=== PATIENT | female | born 1980 | race Caucasian/White ===

== ENCOUNTER 2018-03-12 12:14 | Emergency (ER) | payer SELFPAY ==
[~2018-03-12] VITALS: Ht 172.7 cm; Wt 88.5 kg
[~2018-03-12 12:14] MED LIST: EXENATIDE; METFORMIN HCL500 MG PO; NOVOLIN N100 UNIT/1 SQ; NOVOLIN R100 UNIT/1 SQ; Z.0.ATIVAN2 MG; Z.0.LEXAPRO10 MG
[2018-03-12] MEDS ORDERED: KETOROLAC TROMETHAMINE 30 MG/ML VIAL IV STA (12:18)
[2018-03-12 12:30] LABS: BASOPHILS # (AUTO) 0.1 (0.0-0.1); BASOPHILS % 0.4 % (0.0-1.0); EOSINOPHILS # (AUTO) 0.3 (0.0-0.4); EOSINOPHILS % 2.4 % (0.0-6.0); HEMATOCRIT 46.1 % (34.2-44.1); HEMOGLOBIN 15.4 g/dL (12.0-16.0); LYMPHOCYTES # (AUTO) 3.5 (1.0-3.2); MEAN CORPUSCULAR HEMOGLOBIN 27.5 pg (28-32); MEAN CORPUSCULAR HGB CONC 33.4 g/dL (31-35); MEAN CORPUSCULAR VOLUME 82.3 fL (81-99); MONOCYTES # (AUTO) 0.8 (0.2-0.8); MONOCYTES % 6.3 % (4.4-11.3); NEUTROPHILS # (AUTO) 7.5 (2.1-6.9); NEUTROPHILS % 61.4 % (38.7-80.0); PLATELET COUNT 221 x10e3/uL (140-360); RED CELL DISTRIBUTION WIDTH 13.9 % (11.7-14.4)
[2018-03-12 12:36] LABS: PROTHROMBIN TIME 12.4 seconds (11.9-14.5)
[2018-03-12 12:44] LABS: ALANINE AMINOTRANSFERASE 24 IU/L (0-55); ALBUMIN/GLOBULIN RATIO 1.1 (0.8-2.0); ALKALINE PHOSPHATASE 104 IU/L (40-150); ANION GAP 14.9 mmol/L (8-16); BLOOD UREA NITROGEN 8 mg/dL (7-26); BUN/CREATININE RATIO 11 (6-25); CALCIUM 9.7 mg/dL (8.4-10.2); CARBON DIOXIDE 23 mmol/L (22-29); CHLORIDE 103 mmol/L (98-107); CREATINE KINASE 54 IU/L (29-168); CREATININE, SERUM 0.74 mg/dL (0.57-1.11); EST GLOMERULAR FILTRATION RATE > 60 ML/MIN (60-); GLUCOSE 231 mg/dL (74-118); POTASSIUM 3.9 mmol/L (3.5-5.1); SODIUM 137 mmol/L (136-145)
--- NOTE | 2018-03-12 14:07 | Diagnostic Imaging Report ---
PROCEDURE: A single AP view of the chest. COMPARISON: 09/24/15 INDICATIONS: SUBSTERNAL CHEST PAIN FINDINGS: Lines/tubes: None. Lungs: Limited by body habitus. The lungs are well inflated and clear. There is no evidence of pneumonia or pulmonary edema. Pleura: There is no pleural effusion or pneumothorax. Heart and mediastinum: The heart and the mediastinum are unremarkable. Bones: No acute bony abnormality. IMPRESSION: 1. No acute cardiopulmonary disease. Dictated by: Fransisco Pena M.D. on 03/12/2018 at 14:09 Electronically approved by: Fransisco Pena M.D. on 03/12/2018 at 14:09
[2018-03-12 14:56] VITALS: BP 137/84
== END 2018-03-12 15:08 | disposition home or self-care (01) ==
LOC: ER 12:17
DX: R09.1 Pleurisy (principal); E11.9 Type 2 diabetes mellitus without complications; F41.9 Anxiety disorder, unspecified; G89.29 Other chronic pain
CPT/HCPCS: 36415; 71045; 80053; 82550; 82553; 83880; 84484; 85025; 85379; 85610; 85730; 93005; 99283; J1885

== ENCOUNTER 2020-07-06 14:25 | Emergency (ER) | payer SELFPAY ==
[~2020-07-06] VITALS: Ht 172.7 cm; Wt 88.5 kg
--- NOTE | 2020-07-06 14:58 | Emergency Department Note ---
History of Present Illnes History of Present Illness Chief Complaint: Skin Rash or Abscess History of Present Illness This is a 40 year old female . Historian: Patient Arrival Mode: Car Onset (how long ago): day(s) (7) Past Medical/Family History Physician Review I have reviewed the patient's past medical and family history. Any updates have been documented here. Past Medical History Recent Fever: No Clinical Suspicion of Infectio: No New/Unexplained Change in Ment: No Past Medical History: Diabetes, Anxiety Other Medical History: CHRONIC BACK PAIN Past Surgical History: Cholecysctectomy Other Surgery: knee surgery DNC Other Last Tetanus: 2009 Physical Exam Related Data Allergies: Coded Allergies: tramadol (Verified Allergy, Severe, CONFUSION AND HYPERGLYCERMIA, 09/24/15) ofloxacin (Verified Allergy, Mild, rash, 10/19/11) Triage Vital Signs Vital Signs Date Time Temp Pulse Resp B/P (MAP) Pulse Ox O2 Delivery O2 Flow Rate FiO2 07/06/20 14:49 98.1 72 16 123/75 98 Room Air Physical Exam CONSTITUTIONAL HENT EYES NECK PULMONARY CARDIOVASCULAR GASTROINTESTINAL GENITOURINARY SKIN MUSCULOSKELETAL NEUROLOGICAL PSYCHOLOGICAL Assessment & Plan Assessment & Plan Final Impression: (1) Abscess of right buttock Last Vital Signs Date Time Temp Pulse Resp B/P (MAP) Pulse Ox O2 Delivery O2 Flow Rate FiO2 07/06/20 14:49 98.1 72 16 123/75 98 Room Air Home Meds Reported Medications Insulin Regular, Human (NOVOLIN R) 100 Unit/1 Ml Vial, 10 UNIT SQ AC 09/14/15 Nph, Human Insulin Isophane (NOVOLIN N) 100 Unit/1 Ml Vial, 25 UNIT SQ DAILY 09/14/15 Lorazepam (Ativan) 2 Mg Tablet, prn 10/19/11 HAO OROZCO DO Jul 06, 2020 14:58
--- OUTSIDE RECORDS SUMMARY | 2020-07-06 14:58 | XMS REPORT | Continuity of Care Document ---
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 Allergies, Adverse Reactions, Alerts Allergy Name Allergy Type Status Severity Reaction(s) Onset Date Inacti ve Date Treating Clinician Comments Source tramadol DA Active [place] 2016-12-18 00:00:00 [facility] Tramadol Allergy to Substance Active Severe CONFUSION AND H YPERGLYCERMIA 2015-09-24 00:00:00 [facility] ofloxacin DA Active [place] 2015-04-01 00:00:00 [facility] Ofloxacin Allergy to Substance Active Mild rash 2011-10-19 00:00:00 [facility] Medications Ordered Medication Name Filled Medication Name Start Date Stop Da te Current Medication? Ordering Clinician Indication Dosage Frequency Signature (SIG) Comments Components Source Insulin Regular, Human (Novolin R) 100 Unit/1 Ml Vial Insulin Regular, Human (Novolin R) 100 Unit/1 Ml Vial Yes 10 Before Meals [facility] Lorazepam (Ativan) 2 Mg Tablet Lorazepam (Ativan) 2 Mg Tablet Yes Prn [facility] Nph, Human Insulin Isophane (Novolin N) 100 Unit/1 Ml Vial Nph, Human Insulin Isophane (Novolin N) 100 Unit/1 Ml Vial Yes 25 Daily [facility] Metformin Hcl 500 Mg Tablet, 1 Tab Oral Metformin Hcl 500 Mg Tablet, 1 Tab Oral 2015-09-14 00:00:00 No 1 Daily [facility] Escitalopram Oxalate (Lexapro) 10 Mg Tablet, Escitalop tati Oxalate (Lexapro) 10 Mg Tablet, 2012-10-27 00:00:00 No Daily [facility] Exenatide (Byetta) 5 Mcg/0.02 Ml Pen.injctr, Exenatide (Byetta) 5 Mcg/0.02 Ml Pen.injctr, 2012-10-27 00:00:00 No Twice Daily [facility] Procedures This patient has no known procedures. Encounters Start Date/Time End Date/Time Encounter Type Admission Type Attendi [facility] Care Department Encounter ID Source 2018-03-12 12:17:00 2018-03-12 15:08:00 Departed Emergency Room 1 ANTHONY MOORE [facility] [id number] [facility] Results Test Description Test Time Test Comments Results Result Comments Source - US PELVIS COMPLETE 2019-08-21 16:33:00 Name: KOMAL KELLOGG [facility] : 1980 Age/S: 39 / F [address] Unit #: [id number] Loc: [place] [address] Phys: Giulia Gil MD Acct: [id number] Dis Date: Status: REG CLI PHONE #: [phone] Exam Date: 08/21/2019 1616 FAX #: [phone] Reason: PELVIC PAIN EXAMS: CPT CODE: [id number] US PELVIS COMPLETE 31475 HISTORY: Pelvic pain. COMPARISON: Pelvic ultrasound from May 04, 2017. Transabdominal and transvaginal for better endometrial and ovarian evaluation) pelvic ultrasound: Anteverted uterus measures 7.8 x 4 x 3.9 cm. Heterogeneous echogenicity and coarse texture. Endometrial thickness of 8.2 mm is within normal limits for premenopausal woman. No fibroids. Punctate calcification in subendometrial location is nonspecific finding. Visualized portions of the cervix are normal with nabothian cyst. Color and Doppler flow in either ovary with normal spectral waveform. Right ovary measured 2.8 x 1.7 x 2.4 cm. Left ovary measured 2.8 x 2 x 2.4 cm with dominant follicle. No free fluid. IMPRESSION: Normal endometrium at 8.2 m. No fibroids. Normal ovaries with color Doppler flow. at 1633 Reported and signed by: Jamal Irving M.D. CC: Giulia Gil MD Technologist: Laura Aguilar RDMS Trnutb Date/Time: 08/21/2019 (1632) t.SDR.TH4 Orig Print D/T: S: 08/21/2019 (539) Probe: PAGE 1 Signed Report - US TRANSVAGINAL NON OB 2019-08-21 16:33:00 N bienvenido: KOMAL KELLOGG [facility] : 1980 Age/S: 39 / F [address] [facility] Unit #: [id number] Loc: [place] [address] Phys: Giulia Gil MD Acct: [id number] Dis Date: Status: REG CLI PHONE #: [phone] Exam Date: 08/21/2019 1610 FAX #: [phone] Reason: EXAMS: CPT CODE: [id number] [place] [address] HISTORY: Pelvic pain. COMPARISON: Pelvic ultrasound from May 04, 2017. Transabdominal and transvaginal for better endometrial and ovarian evaluation) pelvic ultrasound: Anteverted uterus measures 7.8 x 4 x 3.9 cm. Heterogeneous echogenicity and coarse texture. Endometrial thickness of 8.2 mm is within normal limits for premenopausal woman. No fibroids. Punctate calcification in subendometrial location is nonspecific finding. Visualized portions of the cervix are normal with nabothian cyst. Color and Doppler flow in either ovary with normal spectral waveform. Right ovary measured 2.8 x 1.7 x 2.4 cm. Left ovary measured 2.8 x 2 x 2.4 cm with dominant follicle. No free fluid. IMPRESSION: Normal endometrium at 8.2 m. No fibroids. Normal ovaries with color Doppler flow. at 1633 Reported and signed by: Jamal Irving M.D. CC: Giulia Gil MD Technologist: Laura Aguilar RDMS Trnscb Date/Time: 08/21/2019 (753) [email or web address] Orig Print D/T: S: 08/21/2019 (0485) Probe: [id number] PAGE 1 Signed Report B-Type Natriuretic Peptide 2018-03-12 12:54:00 Test Item B-Type Natriuretic Peptide (test code = 03043-5) 23.0 0-100 [facility] [id number] 12:54:00* Test Item Value Reference Range Interpretation Comments Creatine Kinase MB (test code = 05490-7) 1.70 0-5.0 [facility] [id number] 12:54:00* Test Item Value Reference Range Interpretation Comments Troponin I (test code = IWO5089) -0.001 0-0.300 [facility] Pebad7661-35-13 12:50:00* Test Item Value Reference Range Interpretation Comments Sodium Level (test code = 2951-2) 137 136-145 [facility]assium Mitgz7294-05-27 12:50:00* Test Item Value Reference Range Interpretation Comments Potassium Level (test code = 2823-3) 3.9 3.5-5.1 [facility] System[facility]loride Lwter6266-58-61 12:50:00* Test Item Value Reference Range Interpretation Comments Chloride Level (test code = 2075-0) 103 98-107 [facility] System[facility] Dioxide Ibgym5598-79-98 12:50:00* Test Item Value Reference Range Interpretation Comments Carbon Dioxide Level (test code = 2028-9) 23 22-29 [facility] SystemAnion Tsq6552-89-72 12:50:00* Test Item Value Reference Range Interpretation Comments Anion Gap (test code = 08085-9) 14.9 8-16 [facility] Urea Bimptxux3629-06-27 12:50:00* Test Item Value Reference Range Interpretation Comments Blood Urea Nitrogen (test code = 3094-0) 8 7-26 [facility] SystemCreatinine2018-05-21 12:50:00* Test Item Value Reference Range Interpretation Comments Creatinine (test code = 2160-0) 0.74 0.57-1.11 [facility] System[facility]UN/Creatinine Oecli1387-24-04 12:50:00* Test Item Value Reference Range Interpretation Comments BUN/Creatinine Ratio (test code = 3097-3) 11 - [facility] System[facility] Glomerular Filtration Rate 2018-03-12 12:50:00* Test Item Value Reference Range Interpretation Comments Estimat Glomerular Filtration Rate (test code = 12433-5) 60- >60 Ranges were taken from the National Kidney Disease Education Program and the [facility] literature.Reference ranges:60 or greater: Akrruv64-15 ( for 3 consecutive months): Chronic kidney disease 15 or less: Kidney failureDeTar Healthcare SystemGlucose Gphrz6737-98-15 12:50:00* Test Item Value Reference Range Interpretation Comments Glucose Level (test code = HHE2006) 231 74-118 H [facility] SystemCalcium Sywuq1238-13-43 12:50:00* Test Item Value Reference Range Interpretation Comments Calcium Level (test code = 09544-4) 9.7 8.4-10.2 [facility] SystemTotal Cikuxecmf8134-66-56 12:50:00* Test Item Value Reference Range Interpretation Comments Total Bilirubin (test code = 1975-2) 0.4 0.2-1.2 [facility] SystemAspartate Amino Transf (AST/SGOT) 2018-03-12 12:50:00* Test Item Value Reference Range Interpretation Comments Aspartate Amino Transf (AST/SGOT) (test code = Aspartate Amino Transf (AST/SGOT)) 15 5-34 [facility] SystemAlanine Aminotransferase (ALT/SGPT) 2018-03-12 12:50:00* Test Item Value Reference Range Interpretation Comments Alanine Aminotransferase (ALT/SGPT) (test code = 1742-6) 24 0-55 [facility] SystemTotal Ciykmbc1721-47-49 12:50:00* Test Item Value Reference Range Interpretation Comments Total Protein (test code = 2885-2) 7.6 6.5-8.1 [facility] SystemAlbumin2018-05-21 12:50:00* Test Item Value Reference Range Interpretation Comments Albumin (test code = 1751-7) 4.0 3.5-5.0 [facility] SystemGlobulin2018-05-21 12:50:00* Test Item Value Reference Range Interpretation Comments Globulin (test code = 26485-4) 3.6 2.3-3.5 H [facility] SystemAlbumin/Globulin Nrjoe2214-89-42 12:50:00 * Test Item Value Reference Range Interpretation Comments Albumin/Globulin Ratio (test code = 1759-0) 1.1 0.8-2.0 [facility] SystemAlkaline Wytdctkkuwj1649-34-38 12:50:00* Test Item Value Reference Range Interpretation Comments Alkaline Phosphatase (test code = 6768-6) 104 40-150 [facility] SystemCreatine Zxqhor3852-85-54 12:50:00* Test Item Value Reference Range Interpretation Comments Creatine Kinase (test code = 2157-6) 54 29-168 [facility] SystemD-Dimer Quantitative (PE/DVT)2018-03-12 12:40:00* Test Item Value Reference Range Interpretation Comments D-Dimer Quantitative (PE/DVT) (test code = 59603-7) 0.29 0. 00-0.45 As with all in vitro diagnostic tests, the test results should be interpreted by the physician in conjunction with clinical findings and other test results.Test results are reported in NEW D-dimer units(ug/mLFEU).[facility] SystemProthrombin Lmcy9432-41-86 12:37:00* Test Item Value Reference Range Interpretation Comments Prothrombin Time (test code = 5902-2) 12.4 11.9-14.5 [facility] SystemProthromb Time International Ratio 2018-03-12 12:37:00* Test Item Value Reference Range Interpretation Comments Prothromb Time International Ratio (test code = 6301-6) 1.00 Oral Anticoagulant Therapy INR Values:1. Low Intensity Therapy 1.5 - 2.02 . Moderate Intensity Therapy 2.0 - 3.03. High Intensity Therapy(1) 2.5 - 3. 54. High Intensity Therapy(2) 3.0 - 4.05. Panic Value INR > 5.0 [facility] SystemActivated Partial Thromboplast Time 2018-03-12 12:37:00* Test Item Value Reference Range Interpretation Comments Activated Partial Thromboplast Time (test code = 17391-3) 29.0 23.8-35.5 [facility] SystemWhite Blood Rpnfm4627-29-01 12:30:00* Test Item Value Reference Range Interpretation Comments White Blood Count (test code = 6690-2) 12.16 4.8-10.8 H [facility] SystemRed Blood Gzftj6886-73-38 12:30:00* Test Item Value Reference Range Interpretation Comments Red Blood Count (test code = 789-8) 5.60 3.6-5.1 H [facility] SystemHemoglobin2018-05-21 12:30:00* Test Item Value Reference Range Interpretation Comments Hemoglobin (test code = 06548-6) 15.4 12.0-16.0 [facility] SystemHematocrit2018-05-21 12:30:00* Test Item Value Reference Range Interpretation Comments Hematocrit (test code = 4544-3) 46.1 34.2-44.1 H [facility] SystemMean Corpuscular Rqlsmc0325-91-32 12:30:00* Test Item Value Reference Range Interpretation Comments Mean Corpuscular Volume (test code = 787-2) 82.3 81-99 [facility] SystemMean Corpuscular Etxwpeyrpw2219-87-72 12:30:00* Test Item Value Reference Range Interpretation Comments Mean Corpuscular Hemoglobin (test code = 785-6) 27.5 28-32 L [facility] Corpuscular Hemoglobin Concent 2018-03-12 12:30:00* Test Item Value Reference Range Interpretation Comments Mean Corpuscular Hemoglobin Concent (test code = 786-4) 33.4 31-35 [facility] SystemRed Cell Distribution Uovds6229-06-42 12:30:00* Test Item Value Reference Range Interpretation Comments Red Cell Distribution Width (test code = 01859-0) 13.9 11.7 -14.4 [facility] SystemPlatelet Icmpd8269-27-51 12:30:00* Test Item Value Reference Range Interpretation Comments Platelet Count (test code = 777-3) 221 140-360 [facility] SystemNeutrophils (%) (Auto)2018-03-12 12:30:00 * Test Item Value Reference Range Interpretation Comments Neutrophils (%) (Auto) (test code = 70022-2) 61.4 38.7-80.0 [facility] SystemLymphocytes (%) (Auto)2018-03-12 12:30:00 * Test Item Value Reference Range Interpretation Comments Lymphocytes (%) (Auto) (test code = 736-9) 29.0 18.0-39.1 [facility] SystemMonocytes (%) (Auto)2018-03-12 12:30:00* Test Item Value Reference Range Interpretation Comments Monocytes (%) (Auto) (test code = 5905-5) 6.3 4.4-11.3 [facility] SystemEosinophils (%) (Auto)2018-03-12 12:30:00 * Test Item Value Reference Range Interpretation Comments Eosinophils (%) (Auto) (test code = 713-8) 2.4 0.0-6.0 [facility] SystemBasophils (%) (Auto)2018-03-12 12:30:00* Test Item Value Reference Range Interpretation Comments Basophils (%) (Auto) (test code = 706-2) 0.4 0.0-1.0 [facility] SystemIM GRANULOCYTES %2018-03-12 12:30:00* Test Item Value Reference Range Interpretation Comments IM GRANULOCYTES % (test code = IM GRANULOCYTES %) 0.5 0.0- 1.0 [facility] SystemNeutrophils # (Auto)2018-03-12 12:30:00* Test Item Value Reference Range Interpretation Comments Neutrophils # (Auto) (test code = 751-8) 7.5 2.1-6.9 H [facility] SystemLymphocytes # (Auto)2018-03-12 12:30:00* Test Item Value Reference Range Interpretation Comments Lymphocytes # (Auto) (test code = 51602-8) 3.5 1.0-3.2 H [facility] SystemMonocytes # (Auto)2018-03-12 12:30:00* Test Item Value Reference Range Interpretation Comments Monocytes # (Auto) (test code = 742-7) 0.8 0.2-0.8 [facility] SystemEosinophils # (Auto)2018-03-12 12:30:00* Test Item Value Reference Range Interpretation Comments Eosinophils # (Auto) (test code = 711-2) 0.3 0.0-0.4 [facility] SystemBasophils # (Auto)2018-03-12 12:30:00* Test Item Value Reference Range Interpretation Comments Basophils # (Auto) (test code = 704-7) 0.1 0.0-0.1 [facility] SystemAbsolute Immature Granulocyte (auto 2018-03-12 12:30:00* Test Item Value Reference Range Interpretation Comments Absolute Immature Granulocyte (auto (raudel t code = Absolute Immature Granulocyte (auto) 0.06 0-0.1 [facility] SystemCHEST SINGLE (PORTABLE) [facility] [address] [place] [address] Patient Name: KOMAL KELLOGG MR #: [id number] : 1980 Age/Sex: 38/F Req #: [id number] Adm Physician: Ordered by: ANTHONY MOORE MD Report #: [id number] Location: ER Room/Bed: Procedure: [id number] DX/CHEST SINGLE (PORTABLE) Exam Date: 03/12/18 Exam Time: [address] ATUS: Signed PROCEDURE: A single AP view of the chest. COMPARISON: INDICATIONS: SUBSTERNAL CHEST PAIN FINDINGS: Lines/tub es: None. Lungs: Limited by body habitus. The lungs are well inflated an d clear. There is no evidence of pneumonia or pulmonary edema. Pleura: There is no pleural effusion or pneumothorax. Heart and mediastinum: The heart and the mediastinum are unremarkable. Bones: No acute bony abnorma lity. IMPRESSION: 1. No acute cardiopulmonary disease. Dicta magi by: Fransisco Fuentes M.D. on 03/12/2018 at 14:09 Electronically approve d by: Fransisco Fuentes M.D. on 03/12/2018 at 14:09 Dictated By: FRANSISCO FUENTES MD 1409 T ranscribed By: RENITA on 03/12/181408 COPY TO: ANTHONY MOORE MD
[2020-07-06] MEDS ORDERED: LIDOCAINE 1% 5ML-MPF INJ ONE (15:00)
[2020-07-06] MEDS ORDERED: HYDROCODONE/APAP 10MG-325MG TAB PO ONE (16:00)
[2020-07-06 16:04] VITALS: BP 127/65
== END 2020-07-06 16:06 | disposition home or self-care (01) ==
LOC: ER 14:56
DX: L02.31 Cutaneous abscess of buttock (principal); E11.9 Type 2 diabetes mellitus without complications; F41.9 Anxiety disorder, unspecified; M54.9 Dorsalgia, unspecified; G89.29 Other chronic pain
CPT/HCPCS: 99282

== ENCOUNTER 2020-09-15 18:16 | Emergency (ER) | payer SELFPAY ==
[~2020-09-15] VITALS: Ht 172.7 cm; Wt 88.5 kg
--- NOTE | 2020-09-15 19:12 | Emergency Department Note ---
History of Present Illnes History of Present Illness Chief Complaint: General Medicine Complaints History of Present Illness This is a 40 year old female from home with weakness, fatigue, cough, nausea, vomiting and diarrhea that started about two weeks ago. Patient reports that the fatigue has been getting progressively worse since it started to the point where walking even a short distance causes exhaustion. Patient reports she has never been tested for covid and was at a about 10 days ago and around a lot of people. Patient reports a history of diabetes and thinks that maybe her blood sugar is causing these symptoms. pt also reports food is not tasting right as well . Historian: Patient Arrival Mode: Car Onset (how long ago): day(s) (14) Location: all over Quality: weakness, cough, diarrhea, nausea Radiation: Reports non-radiation Severity: moderate Onset quality: gradual Duration (how long): day(s) (14) Timing of current episode: constant Progression: worsening Chronicity: new Context: Reports other (possible exposure to covid) Relieving factors: none Exacerbating factors: movement Associated symptoms: Reports cough, Reports malaise, Reports nausea/vomiting (diarrhea), Reports shortness of breath (with exertion) Treatments prior to arrival: none Past Medical/Family History Physician Review I have reviewed the patient's past medical and family history. Any updates have been documented here. Past Medical History Recent Fever: No Clinical Suspicion of Infectio: No New/Unexplained Change in Ment: No Past Medical History: Diabetes, Anxiety Other Medical History: CHRONIC BACK PAIN Past Surgical History: Cholecysctectomy Other Surgery: knee surgery DNC Social History Smoking Cessation: Current every day smoker Counseling Performed: No Alcohol Use: None Any Illegal Drug Use: No Family History Family history of heart diseas: No Other family history htn Other Last Tetanus: 2009 Any Pre-Existing Lines (PICC,: No Review of Systems Review of Systems Constitutional: Reports as per HPI EENTM: Reports no symptoms Cardiovascular: Reports no symptoms Respiratory: Reports as per HPI Gastrointestinal: Reports as per HPI Genitourinary: Reports no symptoms Musculoskeletal: Reports no symptoms Integumentary: Reports no symptoms Neurological: Reports no symptoms Psychological: Reports no symptoms Endocrine: Reports no symptoms Hematological/Lymphatic: Reports no symptoms Physical Exam Related Data Allergies: Coded Allergies: tramadol (Verified Allergy, Severe, CONFUSION AND HYPERGLYCERMIA, 09/24/15) ofloxacin (Verified Allergy, Mild, rash, 10/19/11) Triage Vital Signs Vital Signs Date Time Temp Pulse Resp B/P (MAP) Pulse Ox O2 Delivery O2 Flow Rate FiO2 09/15/20 18:23 98.6 89 17 159/77 100 Room Air Vital signs reviewed: Yes Physical Exam CONSTITUTIONAL Constitutional: Present well-developed, Present well-nourished; Absent distressed HENT HENT: Present normocephalic, Present atraumatic, Present oropharynx clear/moist, Present nose normal HENT L/R: Present left ext ear normal, Present right ext ear normal EYES Eyes: Reports PERRL, Reports conjunctivae normal NECK Neck: Present ROM normal PULMONARY Pulmonary: Present effort normal, Present breath sounds normal CARDIOVASCULAR Cardiovascular: Present regular rhythm, Present heart sounds normal, Present capillary refill normal, Present normal rate GASTROINTESTINAL Abdominal: Present soft, Present nontender, Present bowel sounds normal GENITOURINARY Genitourinary: Present exam deferred SKIN Skin: Present warm, Present dry MUSCULOSKELETAL Musculoskeletal: Present ROM normal NEUROLOGICAL Neurological: Present alert, Present oriented x 3, Present no gross motor or sensory deficits PSYCHOLOGICAL Psychological: Present mood/affect normal, Present judgement normal Results Laboratory Laboratory Laboratory Tests Test 09/15/20 19:25 White Blood Count 11.65 x10e3/uL (4.8-10.8) Red Blood Count 6.04 x10e6/uL (3.6-5.1) Hemoglobin 16.6 g/dL (12.0-16.0) Hematocrit 49.3 % (34.2-44.1) Mean Corpuscular Volume 81.6 fL (81-99) Mean Corpuscular Hemoglobin 27.5 pg (28-32) Mean Corpuscular Hemoglobin Concent 33.7 g/dL (31-35) Red Cell Distribution Width 14.6 % (11.7-14.4) Platelet Count 255 x10e3/uL (140-360) Neutrophils (%) (Auto) 58.0 % (38.7-80.0) Lymphocytes (%) (Auto) 27.6 % (18.0-39.1) Monocytes (%) (Auto) 6.4 % (4.4-11.3) Eosinophils (%) (Auto) 6.4 % (0.0-6.0) Basophils (%) (Auto) 1.1 % (0.0-1.0) Neutrophils # (Auto) 6.8 (2.1-6.9) Lymphocytes # (Auto) 3.2 (1.0-3.2) Monocytes # (Auto) 0.7 (0.2-0.8) Eosinophils # (Auto) 0.7 (0.0-0.4) Basophils # (Auto) 0.1 (0.0-0.1) Absolute Immature Granulocyte (auto 0.06 x10e3/uL (0-0.1) Urine Color Yellow (YELLOW) Urine Clarity Clear (CLEAR) Urine pH 5.5 (5 - 7) Urine Specific [place] 1.015 (1.010-1.025) Urine Protein Negative (NEGATIVE) Urine Glucose (UA) 500 (NEGATIVE) Urine Ketones 1+ (NEGATIVE) Urine Blood Trace (NEGATIVE) Urine Nitrite Negative (NEGATIVE) Urine Bilirubin Negative (NEGATIVE) Urine Urobilinogen 0.2 mg/dL (0.2 - 1) Urine Leukocyte Esterase Negative (NEGATIVE) Urine RBC 0-5 /HPF (0-5) Urine WBC 0-5 /HPF (0-5) Urine Epithelial Cells Moderate /LPF (NONE) Urine Bacteria Few /HPF (NONE) Urine Yeast Few (NONE) Urine Test Negative (NEGATIVE) Sodium Level 134 mmol/L (136-145) Potassium Level 4.0 mmol/L (3.5-5.1) Chloride Level 102 mmol/L (98-107) Carbon Dioxide Level 18 mmol/L (22-29) Anion Gap 18.0 mmol/L (8-16) Blood Urea Nitrogen 14 mg/dL (7-26) Creatinine 0.83 mg/dL (0.57-1.11) Estimat Glomerular Filtration Rate > 60 ML/MIN (60-) BUN/Creatinine Ratio 17 (6-25) Glucose Level 207 mg/dL (74-118) Calcium Level 9.2 mg/dL (8.4-10.2) Total Bilirubin 0.5 mg/dL (0.2-1.2) Aspartate Amino Transf (AST/SGOT) 21 IU/L (5-34) Alanine Aminotransferase (ALT/SGPT) 25 IU/L (0-55) Alkaline Phosphatase 102 IU/L (40-150) Total Protein 8.2 g/dL (6.5-8.1) Albumin 4.2 g/dL (3.5-5.0) Globulin 4.0 g/dL (2.3-3.5) Albumin/Globulin Ratio 1.1 (0.8-2.0) Lab results reviewed: Yes Imaging Imaging results reviewed: Yes Assessment & Plan Medical Decision Making [facility] pt with covid symptoms cbc, cmp, ua, cxr ordered to eval for electrolyte abnormality, anemia, pneumonia, pulmonary edema, dka, uti Assessment & Plan Final Impression: (1) Suspected 2019 novel coronavirus infection (2) Viral pneumonia Last Vital Signs Date Time Temp Pulse Resp B/P (MAP) Pulse Ox O2 Delivery O2 Flow Rate FiO2 09/15/20 18:23 98.6 89 17 159/77 100 Room Air Home Meds Reported Medications Insulin Regular, Human (NOVOLIN R) 100 Unit/1 Ml Vial, 10 UNIT SQ AC 09/14/15 Nph, Human Insulin Isophane (NOVOLIN N) 100 Unit/1 Ml Vial, 25 UNIT SQ DAILY 09/14/15 Lorazepam (Ativan) 2 Mg Tablet, prn 10/19/11 TANIKA BURKETT MD Sep 15, 2020 19:12
[2020-09-15 19:42] LABS: BASOPHILS # (AUTO) 0.1 (0.0-0.1); BASOPHILS % 1.1 % (0.0-1.0); EOSINOPHILS # (AUTO) 0.7 (0.0-0.4); EOSINOPHILS % 6.4 % (0.0-6.0); HEMATOCRIT 49.3 % (34.2-44.1); HEMOGLOBIN 16.6 g/dL (12.0-16.0); LYMPHOCYTES # (AUTO) 3.2 (1.0-3.2); LYMPHOCYTES % 27.6 % (18.0-39.1); MEAN CORPUSCULAR HEMOGLOBIN 27.5 pg (28-32); MEAN CORPUSCULAR HGB CONC 33.7 g/dL (31-35); MEAN CORPUSCULAR VOLUME 81.6 fL (81-99); MONOCYTES # (AUTO) 0.7 (0.2-0.8); MONOCYTES % 6.4 % (4.4-11.3); NEUTROPHILS # (AUTO) 6.8 (2.1-6.9); PLATELET COUNT 255 x10e3/uL (140-360); RED BLOOD COUNT 6.04 x10e6/uL (3.6-5.1); RED CELL DISTRIBUTION WIDTH 14.6 % (11.7-14.4)
--- OUTSIDE RECORDS SUMMARY | 2020-09-15 19:42 | XMS REPORT | Continuity of Care Document ---
Author Author [facility] t Organization [facility] Address [address] [place] [address] Phone Unavailable Care Team Providers [facility] Director Name Role Phone DO KARUNA GAMING PCP Skye MOORE Unavailable Payers Payer Name Policy Type Policy Number Effective Date Expiration Date Kermit howell [facility] [id number] 2015 00:00:00 2014 00:00:00 [facility] Problems Condition Name Condition Details Condition Category Status Onset Date Resolution Date Last Treatment Date Treating Clinician Comments Source Abscess of right buttock Problem Active [facility] Allergies, Adverse Reactions, Alerts Allergy Name Allergy Type Status Severity Reaction(s) Onset Date Inacti ve Date Treating Clinician Comments Source tramadol DA Active [place] 2016-12-18 00:00:00 [facility] Tramadol Allergy to substance Active Severe CONFUSION AND H YPERGLYCERMIA 2015-09-24 00:00:00 [facility] ofloxacin DA Active [place] 2015-04-01 00:00:00 [facility] Ofloxacin Allergy to substance Active Mild rash 2011-10-19 00:00:00 [facility] Social History Social Habit Start Date Stop Date Quantity Comments Source Sex Assigned At 1980 00:00:00 1980 00:00:00 Female [facility] Medications Ordered Medication Name Filled Medication Name Start Date Stop Da te Current Medication? Ordering Clinician Indication Dosage Frequency Signature (SIG) Comments Components Source Insulin Regular, Human (Novolin R) 100 Unit/1 Ml VIAL Insulin Regular, Human (Novolin R) 100 Unit/1 Ml VIAL Yes 10 Before Meals [facility] Lorazepam (Ativan) 2 Mg TABLET Lorazepam (Ativan) 2 Mg TABLET Yes Prn [facility] Nph, Human Insulin Isophane (Novolin N) 100 Unit/1 Ml VIAL Nph, Human Insulin Isophane (Novolin N) 100 Unit/1 Ml VIAL Yes 25 Daily [facility] Metformin Hcl Metformin Hcl 2015-09-14 00:00:00 No 1 Daily [facility] Escitalopram Oxalate (Lexapro) 10 Mg TABLET Escitalopr am Oxalate (Lexapro) 10 Mg TABLET 2012-10-27 00:00:00 No Daily [facility] Exenatide (Byetta) 5 Mcg/0.02 Ml PEN.INJCTR Exenatide (Byetta) 5 Mcg/0.02 Ml PEN.INJCTR 2012-10-27 00:00:00 No Twice Daily [facility] Vital Signs Vital Name Observation Time Observation Value Comments Source Body Temperature 2020-07-06 16:04:00 98.9 [degF] [facility] Weight 2020-07-06 14:49:00 195 [lb_av] [facility] BMI (Body Mass Index) 2020-07-06 14:49:00 29.6 kg/m2 [facility] Procedures This patient has no known procedures. Plan of Care Planned Activity Planned Date Details Comments Source Instructions Skin Abscess [facility] Encounters Start Date/Time End Date/Time Encounter Type Admission Type [facility] Care Facility Care Department Encounter ID Source 2020-07-06 14:56:00 2020-07-06 14:56:00 Registered Emergency Room [facility] [id number] [facility] dical [place] 2018-03-12 12:17:00 2018-03-12 15:08:00 Departed Emergency Room 1 ANTHONY MOORE [facility] [id number] [facility] Results Test Description Test Time Test Comments Results Result Comments Source - US PELVIS COMPLETE 2019-08-21 16:33:00 Name: KOMAL KELLOGG [facility] : 1980 Age/S: 39 / F [address] Unit #: [id number] Loc: [place] [address] Phys: Giulia Gil MD Acct: [id number] Dis Date: Status: REG CLI PHONE #: [phone] Exam Date: 08/21/2019 1610 FAX #: [phone] Reason: PELVIC PAIN EXAMS: CPT CODE: [id number] US PELVIS COMPLETE 29680 HISTORY: Pelvic pain. COMPARISON: Pelvic ultrasound from [...] Technologist: Laura Aguilar RDMS Trnscb Date/Time: 08/21/2019 (1633) [email or web address] Orig Print D/T: S: 08/21/2019 (7297) Probe: PAGE 1 Signed Report - US TRANSVAGINAL NON OB 2019-08-21 16:33:00 N bienvenido: KOMAL KELLOGG [facility] : 1980 Age/S: 39 / F [address] [facility] Unit #: [id number] Loc: [place] [address] Phys: Giulia Gil MD Acct: [id number] Dis Date: Status: REG CLI PHONE #: [phone] Exam Date: 08/21/2019 1610 FAX #: [phone] Reason: EXAMS: CPT CODE: [id number] [place] [address] HISTORY: Pelvic pain. COMPARISON: Pelvic ultrasound from [...] Technologist: Laura Aguilar RDMS Trnscb Date/Time: 08/21/2019 (1633) [email or web address] Orig Print D/T: S: 08/21/2019 (8497) Probe: [id number] PAGE 1 Signed Report B-Type Natriuretic Peptide 2018-03-12 12:54:00 Test Item B-Type Natriuretic Peptide (test code = 07710-0) 23.0 0-100 [facility] Kinase [id number] 12:54:00* Test Item Value Reference Range Interpretation Comments Creatine Kinase MB (test code = 89560-0) 1.70 0-5.0 [facility] Atlanta[facility]roponin [id number] 12:54:00* Test Item Value Reference Range Interpretation Comments Troponin I (test code = OAC1386) -0.001 0-0.300 [facility] Qhulb1138-27-25 12:50:00* Test Item Value Reference Range Interpretation Comments Sodium Level (test code = 2951-2) 137 136-145 [facility] AtlantaPotassium Jfqnf4262-10-21 12:50:00* Test Item Value Reference Range Interpretation Comments Potassium Level (test code = 2823-3) 3.9 3.5-5.1 [facility]loride [id number] 12:50:00* Test Item Value Reference Range Interpretation Comments Chloride Level (test code = 2075-0) 103 98-107 [facility] Atlanta[facility]bon Dioxide [id number] 12:50:00* Test Item Value Reference Range Interpretation Comments Carbon Dioxide Level (test code = 2028-9) 23 22-29 [facility] AtlantaAnion [id number] 12:50:00* Test Item Value Reference Range Interpretation Comments Anion Gap (test code = 40313-1) 14.9 8-16 [facility] Atlanta[facility] Urea Vncmvsms5890-22-42 12:50:00* Test Item Value Reference Range Interpretation Comments Blood Urea Nitrogen (test code = 3094-0) 8 7-26 [facility] AtlantaCreatinine2018-05-21 12:50:00* Test Item Value Reference Range Interpretation Comments Creatinine (test code = 2160-0) 0.74 0.57-1.11 [facility] Atlanta[facility]UN/Creatinine Zwads6360-43-80 12:50:00* Test Item Value Reference Range Interpretation Comments BUN/Creatinine Ratio (test code = 3097-3) 11 6-25 [facility] Atlanta[facility]at Glomerular Filtration Rate 2018-03-12 12:50:00* Test Item Value Reference Range Interpretation Comments Estimat Glomerular Filtration Rate (test code = 63794-6) 60- >60 Ranges were taken from the National Kidney Disease Education Program and the [facility] literature.Reference ranges:60 or greater: Vhkrul96-10 ( for 3 consecutive months): Chronic kidney disease 15 or less: Kidney failureCHRISTUS Saint Michael Hospital – AtlantaGlucose Zbxem0765-38-38 12:50:00* Test Item Value Reference Range Interpretation Comments Glucose Level (test code = ELG6449) 231 74-118 H [facility] AtlantaCalcium Jsxyo3311-71-76 12:50:00* Test Item Value Reference Range Interpretation Comments Calcium Level (test code = 82510-8) 9.7 8.4-10.2 [facility] AtlantaTotal Wnvoqupjc0190-94-82 12:50:00* Test Item Value Reference Range Interpretation Comments Total Bilirubin (test code = 1975-2) 0.4 0.2-1.2 [facility] Atlanta[facility]artate Amino Transf (AST/SGOT) 2018-03-12 12:50:00* Test Item Value Reference Range Interpretation Comments Aspartate Amino Transf (AST/SGOT) (test code = Aspartate Amino Transf (AST/SGOT)) 15 5-34 [facility] AtlantaAlanine Aminotransferase (ALT/SGPT) 2018-03-12 12:50:00* Test Item Value Reference Range Interpretation Comments Alanine Aminotransferase (ALT/SGPT) (test code = 1742-6) 24 0-55 [facility] AtlantaTotal Isrnpin9188-07-07 12:50:00* Test Item Value Reference Range Interpretation Comments Total Protein (test code = 2885-2) 7.6 6.5-8.1 [facility] AtlantaAlbumin2018-05-21 12:50:00* Test Item Value Reference Range Interpretation Comments Albumin (test code = 1751-7) 4.0 3.5-5.0 [facility] AtlantaGlobulin2018-05-21 12:50:00* Test Item Value Reference Range Interpretation Comments Globulin (test code = 65773-4) 3.6 2.3-3.5 H [facility] AtlantaAlbumin/Globulin [id number] 12:50:00 * Test Item Value Reference Range Interpretation Comments Albumin/Globulin Ratio (test code = 1759-0) 1.1 0.8-2.0 [facility] AtlantaAlkaline Ufnnszobmeu8462-67-22 12:50:00* Test Item Value Reference Range Interpretation Comments Alkaline Phosphatase (test code = 6768-6) 104 40-150 [facility] AtlantaCreatine Phmuoy6248-91-84 12:50:00* Test Item Value Reference Range Interpretation Comments Creatine Kinase (test code = 2157-6) 54 29-168 [facility] AtlantaD-Dimer Quantitative (PE/DVT)2018-03-12 12:40:00* Test Item Value Reference Range Interpretation Comments D-Dimer Quantitative (PE/DVT) (test code = 01607-8) 0.29 0. 00-0.45 As with all in vitro diagnostic tests, the test results should be interpreted by the physician in conjunction with clinical findings and other test results.Test results are reported in NEW D-dimer units(ug/mLFEU).[facility] AtlantaProthrombin Dauo7177-26-53 12:37:00* Test Item Value Reference Range Interpretation Comments Prothrombin Time (test code = 5902-2) 12.4 11.9-14.5 [facility] AtlantaProthromb Time International Ratio 2018-03-12 12:37:00* Test Item Value Reference Range Interpretation Comments Prothromb Time International Ratio (test code = 6301-6) 1.00 Oral Anticoagulant Therapy INR Values:1. Low Intensity Therapy 1.5 - 2.02 . Moderate Intensity Therapy 2.0 - 3.03. High Intensity Therapy(1) 2.5 - 3. 54. High Intensity Therapy(2) 3.0 - 4.05. Panic Value INR > 5.0 [facility] AtlantaActivated Partial Thromboplast Time 2018-03-12 12:37:00* Test Item Value Reference Range Interpretation Comments Activated Partial Thromboplast Time (test code = 99914-1) 29.0 23.8-35.5 [facility] AtlantaWhite Blood Bzoly5058-38-82 12:30:00* Test Item Value Reference Range Interpretation Comments White Blood Count (test code = 6690-2) 12.16 4.8-10.8 H [facility] AtlantaRed Blood Nrjnb9302-26-64 12:30:00* Test Item Value Reference Range Interpretation Comments Red Blood Count (test code = 789-8) 5.60 3.6-5.1 H [facility] AtlantaHemoglobin2018-05-21 12:30:00* Test Item Value Reference Range Interpretation Comments Hemoglobin (test code = 07462-2) 15.4 12.0-16.0 [facility] AtlantaHematocrit2018-05-21 12:30:00* Test Item Value Reference Range Interpretation Comments Hematocrit (test code = 4544-3) 46.1 34.2-44.1 H [facility] AtlantaMean Corpuscular Epctmu1255-02-47 12:30:00* Test Item Value Reference Range Interpretation Comments Mean Corpuscular Volume (test code = 787-2) 82.3 81-99 [facility] AtlantaMean Corpuscular Zgvhndotbx7710-33-71 12:30:00* Test Item Value Reference Range Interpretation Comments Mean Corpuscular Hemoglobin (test code = 785-6) 27.5 28-32 L [facility] AtlantaMean Corpuscular Hemoglobin Concent 2018-03-12 12:30:00* Test Item Value Reference Range Interpretation Comments Mean Corpuscular Hemoglobin Concent (test code = 786-4) 33.4 31-35 [facility] AtlantaRed Cell Distribution Esgtb9942-23-12 12:30:00* Test Item Value Reference Range Interpretation Comments Red Cell Distribution Width (test code = 42989-2) 13.9 11.7 -14.4 [facility] AtlantaPlatelet Wfctx5299-32-43 12:30:00* Test Item Value Reference Range Interpretation Comments Platelet Count (test code = 777-3) 221 140-360 [facility] AtlantaNeutrophils (%) (Auto)2018-03-12 12:30:00 * Test Item Value Reference Range Interpretation Comments Neutrophils (%) (Auto) (test code = 00540-1) 61.4 38.7-80.0 [facility] AtlantaLymphocytes (%) (Auto)2018-03-12 12:30:00 * Test Item Value Reference Range Interpretation Comments Lymphocytes (%) (Auto) (test code = 736-9) 29.0 18.0-39.1 [facility] AtlantaMonocytes (%) (Auto)2018-03-12 12:30:00* Test Item Value Reference Range Interpretation Comments Monocytes (%) (Auto) (test code = 5905-5) 6.3 4.4-11.3 [facility] AtlantaEosinophils (%) (Auto)2018-03-12 12:30:00 * Test Item Value Reference Range Interpretation Comments Eosinophils (%) (Auto) (test code = 713-8) 2.4 0.0-6.0 [facility] AtlantaBasophils (%) (Auto)2018-03-12 12:30:00* Test Item Value Reference Range Interpretation Comments Basophils (%) (Auto) (test code = 706-2) 0.4 0.0-1.0 [facility] AtlantaIM GRANULOCYTES %2018-03-12 12:30:00* Test Item Value Reference Range Interpretation Comments IM GRANULOCYTES % (test code = IM GRANULOCYTES %) 0.5 0.0- 1.0 [facility] AtlantaNeutrophils # (Auto)2018-03-12 12:30:00* Test Item Value Reference Range Interpretation Comments Neutrophils # (Auto) (test code = 751-8) 7.5 2.1-6.9 H [facility] AtlantaLymphocytes # (Auto)2018-03-12 12:30:00* Test Item Value Reference Range Interpretation Comments Lymphocytes # (Auto) (test code = 81663-9) 3.5 1.0-3.2 H [facility] AtlantaMonocytes # (Auto)2018-03-12 12:30:00* Test Item Value Reference Range Interpretation Comments Monocytes # (Auto) (test code = 742-7) 0.8 0.2-0.8 [facility] AtlantaEosinophils # (Auto)2018-03-12 12:30:00* Test Item Value Reference Range Interpretation Comments Eosinophils # (Auto) (test code = 711-2) 0.3 0.0-0.4 [facility] AtlantaBasophils # (Auto)2018-03-12 12:30:00* Test Item Value Reference Range Interpretation Comments Basophils # (Auto) (test code = 704-7) 0.1 0.0-0.1 [facility] AtlantaAbsolute Immature Granulocyte (auto 2018-03-12 12:30:00* Test Item Value Reference Range Interpretation Comments Absolute Immature Granulocyte (auto (raudel t code = Absolute Immature Granulocyte (auto) 0.06 0-0.1 [facility] AtlantaCHE[facility]ING[facility]) [place] [address] Patient Name: KOMAL KELLOGG MR #: [id number] : 1980 Age/Sex: 38/F Req #: [id number] Adm Physician: Ordered by: ANTHONY MOORE MD Report #: [id number] Location: ER Room/Bed: Procedure: [id number] DX/CHEST SINGLE (PORTABLE) Exam Date: 03/12/18 Exam [...] at 14:09 Dictated By: FRANSISCO FUENTES MD 08 T ranscribed By: RENITA on 03/12/181408 COPY TO: ANTHONY MOORE MD
[2020-09-15 19:48] LABS: BILIRUBIN,URINE NEGATIVE (NEGATIVE); CLARITY,URINE CLEAR (CLEAR); COLOR,URINE YELLOW (YELLOW); KETONES,URINE 1+ (NEGATIVE); LEUKOCYTE ESTERASE ,URINE NEGATIVE (NEGATIVE); NITRITE,URINE NEGATIVE (NEGATIVE); PROTEIN,URINE DIPSTICK NEGATIVE (NEGATIVE); URINE UROBILINOGEN 0.2 mg/dL (0.2 - 1)
[2020-09-15 19:49] LABS: PREGNANCY TEST, URINE NEGATIVE (NEGATIVE)
[2020-09-15 20:01] LABS: ALANINE AMINOTRANSFERASE 25 IU/L (0-55); ALBUMIN 4.2 g/dL (3.5-5.0); ALBUMIN/GLOBULIN RATIO 1.1 (0.8-2.0); ALKALINE PHOSPHATASE 102 IU/L (40-150); BLOOD UREA NITROGEN 14 mg/dL (7-26); BUN/CREATININE RATIO 17 (6-25); CALCIUM 9.2 mg/dL (8.4-10.2); CARBON DIOXIDE 18 mmol/L (22-29); CHLORIDE 102 mmol/L (98-107); CREATININE, SERUM 0.83 mg/dL (0.57-1.11); EST GLOMERULAR FILTRATION RATE > 60 ML/MIN (60-); GLUCOSE 207 mg/dL (74-118); SODIUM 134 mmol/L (136-145)
[2020-09-15 20:06] LABS: BACTERIA,URINE FEW /HPF; EPITHELIAL CELLS,URINE MODERATE /LPF; RBC,URINE 0-5 /HPF (0-5); WBC,URINE (MAN) 0-5 /HPF (0-5)
[2020-09-15 20:07] LABS: YEAST,URINE FEW
--- NOTE | 2020-09-15 20:56 | Diagnostic Imaging Report ---
EXAMINATION: CHEST SINGLE (PORTABLE) INDICATION: cough COMPARISON: Chest x-ray dated 03/12/2018. FINDINGS: AP view TUBES and LINES: None. . LUNGS/PLEURA: Lungs are well inflated. There are bilateral interstitial opacities likely representing pulmonary edema.. There is no pleural effusion or pneumothorax. HEART AND MEDIASTINUM: The cardiomediastinal silhouette is unremarkable. BONES AND SOFT TISSUES: No acute osseous lesion. Soft tissues are unremarkable. UPPER ABDOMEN: No free air under the diaphragm. IMPRESSION: Bilateral interstitial opacities likely representing pulmonary edema. Pneumonia could be considered in appropriate clinical setting. Signed by: Pantera Wilder MD on 09/15/2020 8:53 PM
[2020-09-15] MEDS ORDERED: CEFTRIAXONE SOD 1 GM/NS 50 ML 50 ML IV ONE ×2 (21:15→21:21)
[2020-09-15] MEDS ORDERED: SODIUM CHLORIDE 0.9% 1000ML 1,000 ML IV SCH (21:15)
[2020-09-15] MEDS ORDERED: AZITHROMYCIN 500MG/NS 250 ML 250 ML IV ONE (21:15)
[2020-09-15] MEDS ORDERED: SODIUM CHLORIDE 0.9% 1000ML 1,000 ML ONE (21:21)
[2020-09-15] MEDS ORDERED: AZITHROMYCIN 500MG/NS 250 ML 250 ML ONE (21:21)
[2020-09-15 22:32] VITALS: BP 154/67
== END 2020-09-15 23:22 | disposition home or self-care (01) ==
LOC: ER 18:56
DX: J12.9 Viral pneumonia, unspecified (principal); R05 Cough; R11.2 Nausea with vomiting, unspecified; R53.83 Other fatigue; E11.65 Type 2 diabetes mellitus with hyperglycemia
CPT/HCPCS: 36415; 71045; 80053; 81001; 81025; 85025; 99284; J0456; J0696; J7030

== ENCOUNTER 2020-12-16 11:39 | Emergency (ER) | payer SELFPAY ==
[~2020-12-16] VITALS: Ht 172.7 cm; Wt 88.5 kg
[2020-12-16] MEDS ORDERED: LIDOCAINE 4% PATCH TP STA (12:03)
[2020-12-16] MEDS ORDERED: DEXAMETHASONE 4 MG TAB PO STA (12:03)
[2020-12-16] MEDS ORDERED: KETOROLAC TROMETHAMINE 30 MG/ML VIAL IM STA (12:03)
[2020-12-16] MEDS ORDERED: ACETAMINOPHEN 325 MG TAB PO ONE (12:15)
[2020-12-16] MEDS ORDERED: LIDOPATCH1 EACH TOP (12:56)
[2020-12-16] MEDS ORDERED: CYCLOBENZAPRINE5 MG PO (12:56)
== END 2020-12-16 13:09 | disposition home or self-care (01) ==
LOC: ER 12:37
DX: M54.5 Low back pain (principal); G89.29 Other chronic pain; W18.2XXA Fall in (into) shower or empty bathtub, initial encounter; Y93.E1 Activity, personal bathing and showering; Y92.002 Bathroom of unspecified non-institutional (private) residence as the place of occurrence of the external cause; E11.9 Type 2 diabetes mellitus without complications; F41.9 Anxiety disorder, unspecified
CPT/HCPCS: 99282; J1885; J8540

== ENCOUNTER 2021-09-07 12:08 | Emergency (ER) | payer OTHER ==
[~2021-09-07] VITALS: Ht 172.7 cm; Wt 89.8 kg
[~2021-09-07 12:08] MED LIST changes: +CYCLOBENZAPRINE5 MG PO; +LIDOPATCH1 EACH TOP
[2021-09-07] MEDS ORDERED: CASIRIVIMAB/IMDEVIMAB 10 ML in SODIUM CHLORIDE 0.9% 100 ML IV ONE (12:30)
[2021-09-07] MEDS ORDERED: ALBUTEROL SULFATE HFA 8GM INHALATION AEROSOL INH PRN (12:30)
== END 2021-09-07 15:22 | disposition home or self-care (01) ==
LOC: ER 12:20
DX: U07.1 COVID-19 (principal); R05.9 Cough, unspecified; E11.9 Type 2 diabetes mellitus without complications; F41.9 Anxiety disorder, unspecified; M54.9 Dorsalgia, unspecified; G89.29 Other chronic pain
CPT/HCPCS: 71045; 99284; J7050